=== PATIENT | male | born 1925 | race Caucasian/White ===

== ENCOUNTER 2016-09-29 11:04 | Emergency (ER) | payer MEDICARE, OTHER ==
[~2016-09-29] VITALS: Ht 182.9 cm; Wt 63.0 kg
[~2016-09-29 11:04] MED LIST: ASPIRIN EC LOW81 MG PO; ASPIRIN LOW81 M1 OR; ATIVAN1 M1 PO; BACTRIM DS1 TAB PO; BAYER ASA325 MG OR; BENADRY2 EX; CIPRO500 MG PO; CIPROFLOXACN500 MG PO; CLARITIN10 MG PO; COMPAZINE10 MG OR; DESYREL50 MG/TAB PO; FISH OIL1000 MG PO; FLOMAX0.4 M1 PO; INDERAL 20MG TA20 MG PO; LEVOTHYROXIN25 MC1 PO; LORAZEPAM0.5 MG PO; MEDDOSEPAK PO; MEGESTROL AC20 MG PO; MULT VITAMI1 PO; MULTIVITAMI1 PO; ONDANSETRON4 MG OR; REMERON15 MG OR; RESTORIL15 M1 OR; RESTORIL30 MG OR; SEROQUEL50 MG OR; SERTRALINE50 MG OR; SINGULAIR10 MG PO; TOPROL XL50 MG OR; TRAZODONE50 MG PO; ULTRAM50 M1 PO; XANAX0.5 MG OR
[2016-09-29] MEDS ORDERED: MULTI VIT PO (11:40)
[2016-09-29 13:25] VITALS: BP 101/54
== END 2016-09-29 13:25 | disposition home or self-care (01) ==
LOC: ED 11:04
DX: S00.03XA Contusion of scalp, initial encounter (principal); S41.102A Unspecified open wound of left upper arm, initial encounter; W06.XXXA Fall from bed, initial encounter; Y92.003 Bedroom of unspecified non-institutional (private) residence as the place of occurrence of the external cause

== ENCOUNTER 2016-10-13 15:09 | Inpatient (IN) | payer MEDICARE, OTHER ==
[~2016-10-13] VITALS: Ht 182.9 cm; Wt 60.0 kg
[~2016-10-13 15:09] MED LIST changes: +MULTI VIT PO
[2016-10-13 16:40] LABS: HEMATOCRIT 37.1 % (39.0-50.0); HEMOGLOBIN 11.7 g/dl (14.0-18.0); IMMATURE GRANULOCYTES 0.6 % (0.0-1.0); MEAN CELL VOLUME 95.4 fL CALC (80.0-100.0); MEAN CORPUSCULAR HGB 30.1 pG CALC (26.0-32.0); MEAN CORPUSCULAR HGB CONC 31.5 g/L CALC (32.0-36.0); NEUT# 9.01 thou/uL (1.82-7.42); RED BLOOD COUNT 3.89 mill/uL (4.70-6.10); RED CELL DISTRI WIDTH 13.5 % (11.5-15.5)
[2016-10-13 16:42] LABS: URINE BILIRUBIN - DIPSTICK NEGATIVE (NEGATIVE); URINE BLOOD DIPSTICK NEGATIVE (NEGATIVE); URINE CLARITY CLOUDY; URINE COLOR YELLOW; URINE GLUCOSE - DIPSTICK NEGATIVE (NEGATIVE); URINE KETONE NEGATIVE (NEGATIVE); URINE LEUK ESTERASE NEGATIVE (NEGATIVE); URINE NITRITE - DIPSTICK NEGATIVE (Negative); URINE PROTEIN - DIPSTICK 30 mg/dL (NEG-TRACE); URINE SPECIFIC GRAVITY 1.015; URINE UROBILINOGEN - DIPSTICK 0.2 E.U./dL (0.2)
[2016-10-13 16:54] LABS: URINE AMORPH SEDIMENT MANY hpf (NONE-FER); URINE RBC 0-2 RBC/hpf (0-5); URINE WBC 0-2 WBC/hpf (0-5)
[2016-10-13 16:58] LABS: ALBUMIN 3.8 g/dL (3.2-5.0); ALKALINE PHOSPHATASE 68 u/l (38-126); ANION GAP 14 (6-22 (CALC)); BILIRUBIN, TOTAL 0.4 mg/dL (0.0-1.4); BUN 22 mg/dL (8-23); BUN/CREATININE RATIO 27 (12-20 (CALC)); CALCIUM 10.4 mg/dL (8.4-10.2); CARBON DIOXIDE 31 mmol/l (22-30); CHLORIDE 99 mmol/l (95-108); CREATININE 0.8 mg/dL (0.7-1.3); GFR > 60 ML/MIN (>=60 (CALC)); GFR FOR AFR.AMER. > 60 ML/MIN (>=60 (CALC)); GLUCOSE 94 mg/dL (82-115); POTASSIUM 4.3 mmol/l (3.5-5.1); SGOT/AST 34 u/l (19-48); SGPT/ALT 31 u/l (11-66); SODIUM 140 mmol/l (137-146); TOTAL PROTEIN 6.5 g/dL (6.3-8.2)
[2016-10-13 20:28] VITALS: BP 114/53
[2016-10-13 23:49] VITALS: BP 96/55
[2016-10-14 04:13] VITALS: BP 111/57
[2016-10-14 06:06] LABS: AMYLASE 474 u/l (30-110); ANION GAP 12 (6-22 (CALC)); BUN 20 mg/dL (8-23); BUN/CREATININE RATIO 28 (12-20 (CALC)); CALCIUM 9.4 mg/dL (8.4-10.2); CARBON DIOXIDE 28 mmol/l (22-30); CHLORIDE 105 mmol/l (95-108); CREATININE 0.7 mg/dL (0.7-1.3); GFR > 60 ML/MIN (>=60 (CALC)); GFR FOR AFR.AMER. > 60 ML/MIN (>=60 (CALC)); GLUCOSE 94 mg/dL (82-115); SODIUM 140 mmol/l (137-146)
[2016-10-14 06:13] LABS: LIPASE 3429 u/l (23-300)
[2016-10-14 10:56] VITALS: BP 107/60
[2016-10-14 11:28] VITALS: BP 118/66
== END 2016-10-14 14:06 | disposition home or self-care (01) | DRG 439 ==
LOC: ENPENDDIS → ED 15:09 → ED-I 15:57 → ED 15:57 → ED-I 17:28 → ED 18:29 → MS2 18:30
PROVIDERS: Emergency Medicine; ADMIT Internal Medicine; ATTEND Internal Medicine
DX: K85.90 Acute pancreatitis without necrosis or infection, unspecified (principal); Z68.1 Body mass index [BMI] 19.9 or less, adult; D64.9 Anemia, unspecified; R63.0 Anorexia; N28.89 Other specified disorders of kidney and ureter; R63.4 Abnormal weight loss; Z87.891 Personal history of nicotine dependence; Z85.89 Personal history of malignant neoplasm of other organs and systems
CPT/HCPCS: J1650

== ENCOUNTER 2016-10-21 16:50 | Inpatient (IN) | payer MEDICARE, OTHER ==
[~2016-10-21] VITALS: Ht 182.9 cm; Wt 61.0 kg
[2016-10-21 17:54] LABS: HEMATOCRIT 33.8 % (39.0-50.0); HEMOGLOBIN 11.1 g/dl (14.0-18.0); IMMATURE GRANULOCYTES 0.5 % (0.0-1.0); MEAN CELL VOLUME 93.6 fL CALC (80.0-100.0); MEAN CORPUSCULAR HGB 30.7 pG CALC (26.0-32.0); MEAN CORPUSCULAR HGB CONC 32.8 g/L CALC (32.0-36.0); NEUT# 10.8 thou/uL (1.82-7.42); RED BLOOD COUNT 3.61 mill/uL (4.70-6.10); RED CELL DISTRI WIDTH 13.7 % (11.5-15.5)
[2016-10-21 18:06] LABS: ALBUMIN 3.4 g/dL (3.2-5.0); ALKALINE PHOSPHATASE 77 u/l (38-126); AMYLASE 262 u/l (30-110); ANION GAP 14 (6-22 (CALC)); BILIRUBIN, TOTAL 0.4 mg/dL (0.0-1.4); BUN 19 mg/dL (8-23); BUN/CREATININE RATIO 23 (12-20 (CALC)); CALCIUM 9.3 mg/dL (8.4-10.2); CARBON DIOXIDE 26 mmol/l (22-30); CHLORIDE 103 mmol/l (95-108); CREATININE 0.8 mg/dL (0.7-1.3); GFR > 60 ML/MIN (>=60 (CALC)); GFR FOR AFR.AMER. > 60 ML/MIN (>=60 (CALC)); GLUCOSE 138 mg/dL (82-115); LIPASE 973 u/l (23-300); SGOT/AST 37 u/l (19-48); SGPT/ALT 35 u/l (11-66); SODIUM 138 mmol/l (137-146); TOTAL PROTEIN 6.4 g/dL (6.3-8.2)
[2016-10-21 18:18] LABS: MYOGLOBIN 141 ng/mL (0 - 121)
[2016-10-21 21:01] LABS: URINE BILIRUBIN - DIPSTICK NEGATIVE (NEGATIVE); URINE BLOOD DIPSTICK NEGATIVE (NEGATIVE); URINE CLARITY CLEAR; URINE COLOR YELLOW; URINE GLUCOSE - DIPSTICK NEGATIVE (NEGATIVE); URINE KETONE 15 mg/dL (NEGATIVE); URINE LEUK ESTERASE NEGATIVE (NEGATIVE); URINE NITRITE - DIPSTICK NEGATIVE (Negative); URINE PH 5.5 (4.5-8.0); URINE PROTEIN - DIPSTICK TRACE mg/dL (NEG-TRACE); URINE SPECIFIC GRAVITY 1.025; URINE UROBILINOGEN - DIPSTICK 0.2 E.U./dL (0.2)
[2016-10-21 22:30] VITALS: BP 118/73
[2016-10-22 04:00] VITALS: BP 112/70
[2016-10-22 05:29] LABS: AMYLASE 310 u/l (30-110); ANION GAP 11 (6-22 (CALC)); BUN 23 mg/dL (8-23); BUN/CREATININE RATIO 32 (12-20 (CALC)); CALCIUM 8.7 mg/dL (8.4-10.2); CARBON DIOXIDE 25 mmol/l (22-30); CHLORIDE 106 mmol/l (95-108); CREATININE 0.7 mg/dL (0.7-1.3); GFR > 60 ML/MIN (>=60 (CALC)); GFR FOR AFR.AMER. > 60 ML/MIN (>=60 (CALC)); GLUCOSE 114 mg/dL (82-115); LIPASE 1975 u/l (23-300); MAGNESIUM 1.9 mg/dL (1.6-2.3); SODIUM 138 mmol/l (137-146)
[2016-10-22 08:47] VITALS: BP 114/74
[2016-10-22 15:14] VITALS: BP 103/64
[2016-10-22 20:30] VITALS: BP 149/80
[2016-10-23] VITALS (10 sets, daily range): BP systolic 103–133; BP diastolic 55–75
[2016-10-23 06:11] LABS: HEMATOCRIT 27.3 % (39.0-50.0); HEMOGLOBIN 8.7 g/dl (14.0-18.0); IMMATURE GRANULOCYTES 0.6 % (0.0-1.0); MEAN CELL VOLUME 95.8 fL CALC (80.0-100.0); MEAN CORPUSCULAR HGB 30.5 pG CALC (26.0-32.0); MEAN CORPUSCULAR HGB CONC 31.9 g/L CALC (32.0-36.0); RED BLOOD COUNT 2.85 mill/uL (4.70-6.10); RED CELL DISTRI WIDTH 13.9 % (11.5-15.5)
[2016-10-23 06:35] LABS: AMYLASE 288 u/l (30-110); ANION GAP 13 (6-22 (CALC)); BUN 23 mg/dL (8-23); BUN/CREATININE RATIO 30 (12-20 (CALC)); CALCIUM 8.7 mg/dL (8.4-10.2); CARBON DIOXIDE 24 mmol/l (22-30); CHLORIDE 106 mmol/l (95-108); CREATININE 0.8 mg/dL (0.7-1.3); GFR > 60 ML/MIN (>=60 (CALC)); GFR FOR AFR.AMER. > 60 ML/MIN (>=60 (CALC)); GLUCOSE 113 mg/dL (82-115); LIPASE 1228 u/l (23-300); POTASSIUM 3.9 mmol/l (3.5-5.1); SODIUM 139 mmol/l (137-146)
[2016-10-23 13:18] LABS: IMMATURE GRANULOCYTES 0.8 % (0.0-1.0); MEAN CELL VOLUME 95.1 fL CALC (80.0-100.0); MEAN CORPUSCULAR HGB 30.6 pG CALC (26.0-32.0); MEAN CORPUSCULAR HGB CONC 32.1 g/L CALC (32.0-36.0); PLATELET COUNT 306 thou/uL (130-400); RED BLOOD COUNT 2.06 mill/uL (4.70-6.10)
[2016-10-23 13:24] LABS: ALKALINE PHOSPHATASE 44 u/l (38-126); ANION GAP 9 (6-22 (CALC)); BILIRUBIN, TOTAL 0.2 mg/dL (0.0-1.4); BUN 26 mg/dL (8-23); BUN/CREATININE RATIO 33 (12-20 (CALC)); CARBON DIOXIDE 23 mmol/l (22-30); CHLORIDE 107 mmol/l (95-108); CREATININE 0.8 mg/dL (0.7-1.3); GFR > 60 ML/MIN (>=60 (CALC)); GFR FOR AFR.AMER. > 60 ML/MIN (>=60 (CALC)); GLUCOSE 156 mg/dL (82-115); POTASSIUM 3.9 mmol/l (3.5-5.1); SGOT/AST 31 u/l (19-48); SGPT/ALT 27 u/l (11-66); SODIUM 135 mmol/l (137-146); TOTAL PROTEIN 3.9 g/dL (6.3-8.2)
[2016-10-23 13:33] LABS: HEMATOCRIT 19.6 % (39.0-50.0); HEMOGLOBIN 6.3 g/dl (14.0-18.0)
[2016-10-23 15:02] LABS: MANUAL DIFFERENTIAL YES
[2016-10-23 15:04] LABS: MANUAL DIFFERENTIAL YES
[2016-10-23 15:07] LABS: HYPOCHROMIA MODERATE; MICROCYTOSIS FEW
[2016-10-23 22:54] LABS: NUCLEATED RED BLOOD CELL 0 /100WBC (0-1)
[2016-10-23 22:56] LABS: PLATELET COUNT 308 thou/uL (130-400)
== END 2016-10-23 15:20 | disposition short-term general hospital (02) | DRG 439 ==
LOC: ED 16:50 → ED-I 17:31 → ED 17:31 → ED-I 18:11 → ED 20:37 → MS2 20:38 → ICU 10-23 13:05
PROVIDERS: Emergency Medicine; Internal Medicine; ADMIT Internal Medicine; ATTEND Internal Medicine
PROC: 30233N1 Transfusion of Nonautologous Red Blood Cells into Peripheral Vein, Percutaneous Approach (ICD-10-PCS; principal; 2016-10-23)
PROC: 30233N1 Transfusion of Nonautologous Red Blood Cells into Peripheral Vein, Percutaneous Approach (ICD-10-PCS; 2016-10-23)
PROC: 30233K1 Transfusion of Nonautologous Frozen Plasma into Peripheral Vein, Percutaneous Approach (ICD-10-PCS; 2016-10-23)
PROC: 30233K1 Transfusion of Nonautologous Frozen Plasma into Peripheral Vein, Percutaneous Approach (ICD-10-PCS; 2016-10-23)
DX: K85.90 Acute pancreatitis without necrosis or infection, unspecified (principal); K92.2 Gastrointestinal hemorrhage, unspecified; I95.9 Hypotension, unspecified; I48.91 Unspecified atrial fibrillation; E86.0 Dehydration; Z68.1 Body mass index [BMI] 19.9 or less, adult; R63.4 Abnormal weight loss; Z85.89 Personal history of malignant neoplasm of other organs and systems; Z85.46 Personal history of malignant neoplasm of prostate; Z87.891 Personal history of nicotine dependence
CPT/HCPCS: P9016; Q9967